=== PATIENT | female | born 1960 | race Hispanic/Latino ===

== ENCOUNTER 2018-08-26 08:52 | Inpatient (IN) | payer MEDICAID | END 2018-09-28 19:00 | disposition home or self-care (01) | LOC: EDH 08:52 → 2DH 08-31 21:06 → 3DH 09-03 15:54 → 3AH 09-06 20:24 → EDHIP 08:53 → 4BH 19:28 | DX: A41.9 Sepsis, unspecified organism (principal); J69.0 Pneumonitis due to inhalation of food and vomit; K56.609 Unspecified intestinal obstruction, unspecified as to partial versus complete obstruction; I82.402 Acute embolism and thrombosis of unspecified deep veins of left lower extremity; F72 Severe intellectual disabilities; E66.01 Morbid (severe) obesity due to excess calories; K29.70 Gastritis, unspecified, without bleeding; E03.9 Hypothyroidism, unspecified; F79 Unspecified intellectual disabilities; G40.909 Epilepsy, unspecified, not intractable, without status epilepticus; I82.4Z2 Acute embolism and thrombosis of unspecified deep veins of left distal lower extremity; L03.116 Cellulitis of left lower limb; R65.20 Severe sepsis without septic shock; E86.0 Dehydration; K29.00 Acute gastritis without bleeding ==

== ENCOUNTER 2024-10-26 11:25 | Emergency (ER) | payer MEDICARE ==
[~2024-10-26] VITALS: Ht 147.3 cm; Wt 69.4 kg
[~2024-10-26 11:25] MED LIST: ACET-66 PO; AMIT25TA9 PO; BISM525O10 PO; CLOT12CR TP; DIAZ10TA4 PO; DIPH-1242 PO; DIPH30C TP; DIVA-76 PO; DOCU-280 PO; FURO20TA4 PO; HC1C1.5 TP; IBUP-2482 PO; LEVO50TA11 PO; LIDO240G3 TP; MELA3TAB41 PO; MOM30 PO; MYLANTA PO; NEOM1PAC2 TP; PHEN177S29 PO; ROBITUSSIN DM PO; VITADO TP
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
--- NOTE | 2024-10-26 12:17 | HMCIMG ---
CT HEAD/BRAIN W/O CONTRAST HISTORY: Status post fall COMPARISON: None TECHNIQUE: Multiple sequential axial images of the head were obtained from the base of the skull through vertex. Patient was not given contrast through intravenous route. FINDINGS: The ventricles and extraventricular CSF spaces are dilated consistent with cerebral atrophy. Nonspecific white matter changes seen. There is no midline shift, mass effect or herniation. No acute intracranial bleed is seen. Minimal left maxillary sinus disease is seen. IMPRESSION: 1. No acute intracranial bleed is seen. 2. Atrophy with white matter changes. CT was performed with one or more following dose reduction techniques: automated exposure control, adjustment of the mA and kv according to patient's size, or use of a iterative reconstruction technique.
[2024-10-26 12:32] VITALS: BP 109/61; PULSE 64; RESP 16; TEMP 98.1; O2SAT 98
--- NOTE | 2024-10-26 12:57 | HMCIMG ---
PELVIS 1-2VWS HISTORY: Status post fall COMPARISON: None TECHNIQUE: Frontal projection of the pelvis was obtained. FINDINGS: Contrast is seen in the colon. Calcification is seen in the pelvis suspicious for fibroid uterus. There is no acute displaced fracture or dislocation. Degenerative changes are seen. IMPRESSION: 1. Findings as described above.
--- NOTE | 2024-10-26 12:57 | HMCIMG ---
CHEST 1VW HISTORY: Status post fall COMPARISON: 09/20/2018 FINDINGS: A frontal projection of the chest was obtained. Mild bilateral pulmonary infiltrates are seen may be related to mild pulmonary vascular congestion with possible superimposed pneumonitis. The heart is normal in size. Degenerative changes are seen. No evidence of aortic calcification is seen. IMPRESSION: 1. Mild bilateral pulmonary infiltrates are seen may be related to mild pulmonary vascular congestion with possible superimposed pneumonitis.
--- NOTE | 2024-10-26 12:59 | NUR ---
no injury identified due to fall at home pt to return to long-term [facility] from long-term
== END 2024-10-26 13:01 | disposition home or self-care (01) ==
LOC: EDH 11:25
DX: S09.8XXA Other specified injuries of head, initial encounter (principal); Z79.01 Long term (current) use of anticoagulants; Z79.890 Hormone replacement therapy; Z79.899 Other long term (current) drug therapy; W01.0XXA Fall on same level from slipping, tripping and stumbling without subsequent striking against object, initial encounter; Y93.01 Activity, walking, marching and hiking; Y92.89 Other specified places as the place of occurrence of the external cause; Y99.8 Other external cause status
CPT/HCPCS: 70450; 71045; 72170; 99284

== ENCOUNTER 2024-11-27 12:22 | Emergency (ER) | payer MEDICARE ==
[~2024-11-27] VITALS: Ht 160 cm; Wt 72.6 kg
[2024-11-27 12:26] VITALS: BP 133/71; PULSE 63; RESP 20; TEMP 97.8
--- NOTE | 2024-11-27 12:31 | NUR ---
REFER TO [facility] FLOW SHEET
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
--- NOTE | 2024-11-27 12:59 | HMCIMG ---
Exam Type: CT HEAD/BRAIN W/O CONTRAST Clinical Information: fall Comparison: None CT Dose Index (CTDI): 57.33 mGy Dose Length Product (DLP): 956.79 total mGy-cm Findings: The examination is unremarkable. Cerrato-white matter junction is preserved. No intra or extra axial lesions or fluid collections are seen. Specifically, cerrato and white matter are normal in signal characteristics with normal caliber of ventricles and periventricular cisterns with no evidence of intra or or extra-axial hemorrhage, lacunar infarct, or major territorial infarct, mass, or other abnormality. There are no infarcts. There are no hemorrhages. Periventricular white matter locations are preserved. The orbital contents and structures of the posterior fossa are intact. Impression: Normal CT of the head. This study was performed using dose reduction techniques to include automated exposure control and/or adjustment of the mA and/or kV according to patient size.
--- NOTE | 2024-11-27 13:57 | HMCIMG ---
Exam Type: CERV SPINE 2-3VWS Clinical Information: fall Comparison: None FINDINGS: C1 through the top of T1 are seen on the lateral view. There are spondylitic changes. The prevertebral soft tissues are normal. There are no fractures or dislocation C1-C7. There is straightening of the normal cervical lordosis consistent with spasm. The disc spaces are normal as is the distance between the arch of C1 and the dens. The spinolaminar line is smooth and the spinous process tips intact. The AP view of the cervical spine is unremarkable. IMPRESSION: Cervical spasm.
== END 2024-11-27 15:09 | disposition home or self-care (01) ==
LOC: EDH 12:22
DX: S00.03XA Contusion of scalp, initial encounter (principal); Z79.01 Long term (current) use of anticoagulants; Z79.890 Hormone replacement therapy; Z79.899 Other long term (current) drug therapy; Z98.890 Other specified postprocedural states; W11.XXXA Fall on and from ladder, initial encounter; Y93.89 Activity, other specified; Y92.89 Other specified places as the place of occurrence of the external cause; Y99.8 Other external cause status
CPT/HCPCS: 70450; 72040; 99284